=== PATIENT | male | born 1995 | race Caucasian/White ===

== ENCOUNTER 2016-10-13 19:52 | Emergency (ER) | payer OTHER ==
[2016-10-13 20:02] VITALS: BP 124/85; PULSE 76; TEMP 98.1; BMI 25.8
--- NOTE | 2016-10-13 20:36 | PDOC ---
History of Present Illness - General Chief Complaint: Pain Stated Complaint: ABDOMINAL PAIN Time Seen by Provider: 10/13/16 20:03 - History of Present Illness Initial Comments: 10/13/16 20:28 21 yo M with no significant pmh who presents with lower abdominal pain. Pt. reports worsening, intermittent, sharp diffuse lower abdominal pain beginning 2 days ago. Yesterday evening pain has increased to 8/10 severity. Also endorses watery stool yesterday morning , but denies blood in stool. States that Sunday he began to experience painful defecation and itching associated with BM. Complains of dysuria of 3 days duration and BL flank pain. Denies fevers/chills , N/V, hematochezia/melena, SOB, chest pain. Abdominal pain is aggravated with food, but no specific foods. Abdominal pain aggravated with standing for prolonged period, but improves with supine positioning. Pt. expressed being sexually active and concerned about the possibility of having an STI. States that he has 3 sexual partners and uses condoms regularly with the exception of a female sexual partner one month ago. Has both male and female sexual partners. Does not known STI status of partners. Denies genital discharge, itching, lesions, or burning. Past History - Past Medical History Allergies/Adverse Reactions: Allergies Allergy/AdvReac Type Severity Reaction Status Date / Time No Known Allergies Allergy Verified 10/13/16 19:57 Home Medications: Ambulatory Orders NK [No Known Home Medication] 09/01/15 Other medical history: Pt denies - Surgical History Abdominal Surgery: Yes (Hernia repair when infant) - Psycho/Social/Smoking Cessation Hx Suicidal Ideation: No Smoking History: Never smoked Information on smoking cessation initiated: No Hx Alcohol Use: No Drug/Substance Use Hx: No Substance Use Type: None Review of Systems - Review of Systems Comments:: 10/13/16 20:58 GENERAL/CONSTITUTIONAL: No fever or chills. No weakness. HEAD, EYES, EARS, NOSE AND THROAT: No change in vision. No ear pain or discharge. No sore throat. CARDIOVASCULAR: No chest pain or shortness of breath RESPIRATORY: No cough, wheezing, or hemoptysis. GASTROINTESTINAL: + Abdominal pain. No nausea, vomiting, diarrhea or constipation. GENITOURINARY:+ dysuria. No frequency, or change in urination. MUSCULOSKELETAL: No joint or muscle swelling or pain. No neck or back pain. SKIN: No rash NEUROLOGIC: No headache, vertigo, loss of consciousness, or change in strength/ sensation. ENDOCRINE: No increased thirst. No abnormal weight change HEMATOLOGIC/LYMPHATIC: No anemia, easy bleeding, or history of blood clots. ALLERGIC/IMMUNOLOGIC: No hives or skin allergy. *Physical Exam - Vital Signs Last Vital Signs Temp Pulse Resp BP Pulse Ox 98.1 F 76 18 124/85 98 10/13/16 19:58 10/13/16 19:58 10/13/16 19:58 10/13/16 19:58 10/13/16 19:58 - Physical Exam Comments: 10/13/16 20:59 GENERAL: Awake, alert, and fully oriented, in no acute distress HEAD: No signs of trauma, normocephalic, atraumatic EYES: PERRLA, EOMI, sclera anicteric, conjunctiva clear ENT: Auricles normal inspection, hearing grossly normal, nares patent, oropharynx clear without exudates. Moist mucosa NECK: Normal ROM, supple, no lymphadenopathy, JVD, or masses LUNGS: No distress, speaks full sentences, clear to auscultation bilaterally HEART: Regular rate and rhythm, normal S1 and S2, no murmurs, rubs or gallops, peripheral pulses normal and equal bilaterally. ABDOMEN: + Exquisite TTP in RLQ. Mild TTP in RUQ. + BL CVA tenderness. Soft, normoactive bowel sounds. No guarding, no rebound. No masses. Absent HSP. EXTREMITIES: Normal inspection, Normal range of motion, no edema. No clubbing or cyanosis. SKIN: Warm, Dry, normal turgor, no rashes or lesions noted. ED Treatment Course - LABORATORY CBC & Chemistry Diagram: 10/13/16 20:47 10/13/16 20:47 Medical Decision Making - Medical Decision Making 10/13/16 21:53 21 yo M with no significant pmh who presents with lower abdominal pain. Pt. reports worsening, intermittent, sharp diffuse lower abdominal pain beginning 2 days ago. Also endorses postprandial abdominal pain, and dysuria. with no other asx. symptoms. Physical exam reveals marked RLQ TTP , mild RUQ tenderness, and BL CVA tenderness. Pt. also expressed concern about potential STI given recent sexual activity with no barrier protection and multiple sexual partners of unknown STI status. He is currently asymptomatic, but requests further evaluation for STI. DDx: Appendicitis, Choliethiasis, Nephrolithiasis, Cystitis, Pyelenophritis, STI ED Course: CBC: Unremarkable CMP: Unremarkable Lipase: Unremarkable UA: Neg GC RPR HIV CT ABD/PELVIS: Fatty liver and diverticula present in colon. Absent signs of diverticulitis. *DC/Admit/Observation/Transfer Diagnosis at time of Disposition: Abdominal pain Qualifiers: Abdominal location: lower abdomen, unspecified Qualified Code(s): R10.30 - Lower abdominal pain, unspecified Diverticula of colon Qualifiers: Diverticulosis bleeding: diverticulosis without bleeding Qualified Code(s): K57.30 - Diverticulosis of large intestine without perforation or abscess without bleeding - Discharge Dispostion Admit: No - Referrals Referrals: Marysol Conley [Primary Care Provider] - - Patient Instructions Printed Discharge Instructions: Diverticular Disease (Alternative Therapy), Nonalcoholic Fatty Liver Disease Additional Instructions: Please return to ED if you experience worsening abdominal pain, fever/chills, nausea with vomiting, blood in stool or worsening of symptoms. Please decrease fat intake and increase fruits/vegetables in diet. Please follow up with primary care for dietary management and symptom control. Print Language: GAMBIAN - Attestations Physician Attestion: 10/14/16 00:19 I, Dr. Babar Bowles, attest that this document has been prepared under my direction and personally reviewed by me in its entirety. I further attest, that it accurately reflects all work, treatment, procedures and medical decision -making performed by me.
[2016-10-13 21:01] LABS: BASOPHIL 0.7 % (0-2.0); EOSINOPHIL 1.1 % (0-4.5); MCH 28.5 pg (25.7-33.7); MCHC 33.9 g/dl (32.0-35.9); MEAN PLT VOLUME 9.8 fl (7.5-11.1); NEUTROPHILS 56.8 % (42.8-82.8); PLATELET COUNT 201 K/MM3 (134-434); RDW 13.5 % (11.9-15.9); WHITE BLOOD COUNT 9.1 K/mm3 (4.0-10.0)
[2016-10-13 21:07] LABS: URINE APPEARANCE CLEAR; URINE BILIRUBIN NEGATIVE (NEGATIVE); URINE BLOOD NEGATIVE (NEGATIVE); URINE COLOR LTYELLOW; URINE GLUCOSE (UA) NEGATIVE (NEGATIVE); URINE KETONE NEGATIVE (NEGATIVE); URINE LEUK ESTERASE NEGATIVE (NEGATIVE); URINE NITRITE NEGATIVE (NEGATIVE); URINE PROTEIN NEGATIVE (NEGATIVE); URINE UROBILINOGEN NEGATIVE mg/dL (0.2-1.0)
[2016-10-13 21:27] LABS: ALBUMIN 4.3 g/dl (3.4-5.0); ANION GAP 8 (8-16); BILIRUBIN,TOTAL 0.4 mg/dL (0.2-1.0); CALCIUM 9.4 mg/dL (8.5-10.1); CO2 26 mmol/L (21-32); CREATININE 0.8 mg/dL (0.7-1.3); GLUCOSE,RANDOM 86 mg/dL (74-106); SGOT/AST 44 U/L (15-37); SGPT/ALT 112 U/L (12-78); TOT PROT 7.9 g/dl (6.4-8.2)
[2016-10-13 21:28] LABS: ALK PHOS 99 U/L (45-117)
[2016-10-13 22:17] LABS: HIV 1 & 2 AB NEGATIVE; HIV 1 AGp24 NEGATIVE
--- NOTE | 2016-10-14 00:14 | PDOC ---
Attending Attestation - Resident Resident Name: Babar Bowles - HPI HPI: 10/14/16 05:03 Pt comes with generalized abd pain and request for STD test. - Physicial Exam PE: 10/14/16 05:03 agree with resident exam - Medical Decision Making 10/14/16 05:03 CT abd pelvis is normal; STD test pending Labs normal UA normal Pt is stable for discahrge Abd pain NOS
== END 2016-10-14 00:40 | disposition home or self-care (01) ==
LOC: JER 19:52
DX: K57.30 Diverticulosis of large intestine without perforation or abscess without bleeding (principal); R10.30 Lower abdominal pain, unspecified
CPT/HCPCS: 36415; 74177-TC; 80053; 81003; 83690; 85025; 86593; 87389; 87491; 87591; 99282-25

== ENCOUNTER 2017-03-24 15:15 | Emergency (ER) | payer OTHER ==
[2017-03-24 15:44] VITALS: BMI 25.8
[2017-03-24] MEDS ORDERED: SODIUM CHLORIDE 1,000 ML IV STA (17:24)
[2017-03-24] MEDS ORDERED: ACETAMINOPHEN 1000 MG/100 ML VIAL (NON FORMULARY) IVPB ONE (17:24)
--- NOTE | 2017-03-24 17:41 | PDOC ---
History of Present Illness - General History Source: Patient Exam Limitations: No Limitations - History of Present Illness Initial Comments: 03/24/17 17:43 The patient is a 21 year old male, with a significant past medical history of diverticulosis, who presents to the emergency department with 3 days of abdominal pain with genital itching and redness. He reports the abdominal pain as sharp localized to his bilateral lower quadrants which started as 8/10, however, is now 5/10 in severity. He states he is sexually active with multiple partners. He denies a past history of STI. Secondarily he reports an intermittent, sharp, left sided chest pain which started at the same time as his abdominal pain and genital complaints, however, states that this morning he noticed the pain radiated to his left arm. He denies shortness of breath, headache and dizziness. He denies fever, chills, nausea, vomit, diarrhea and constipation. He denies dysuria, frequency, urgency and hematuria. Allergies: NKDA <Lori Ryan - Last Filed: 03/24/17 17:43> - General History Source: Patient Exam Limitations: No Limitations <Dandy Price - Last Filed: 03/29/17 21:37> - General Chief Complaint: Pain Stated Complaint: ABDOMINAL PAIN Time Seen by Provider: 03/24/17 16:42 Past History <Lori Ryan - Last Filed: 03/24/17 17:43> - Past Medical History CVA: No COPD: No - Surgical History Abdominal Surgery: Yes (Hernia repair when ) - Suicide/Smoking/Psychosocial Hx Smoking History: Never smoked Hx Alcohol Use: Yes (SOCIAL) Drug/Substance Use Hx: No Substance Use Type: None <Dandy Price - Last Filed: 03/29/17 21:37> - Past Medical History Allergies/Adverse Reactions: Allergies Allergy/AdvReac Type Severity Reaction Status Date / Time No Known Allergies Allergy Verified 03/24/17 15:44 Home Medications: Ambulatory Orders NK [No Known Home Medication] 09/01/15 Review of Systems - Review of Systems Able to Perform ROS?: Yes Comments:: 03/24/17 17:44 GENERAL/CONSTITUTIONAL: No fever or chills. No weakness. HEAD, EYES, EARS, NOSE AND THROAT: No change in vision. No ear pain or discharge. No sore throat. CARDIOVASCULAR: (+) chest pain, No shortness of breath. RESPIRATORY: No cough, wheezing, or hemoptysis. GASTROINTESTINAL: (+) lower abdominal pain. No nausea, vomiting, diarrhea or constipation. GENITOURINARY: (+) genital itching and redness. No dysuria, frequency, or change in urination. MUSCULOSKELETAL: No joint or muscle swelling or pain. No neck or back pain. SKIN: No rash NEUROLOGIC: No headache, vertigo, loss of consciousness, or change in strength/ sensation. ENDOCRINE: No increased thirst. No abnormal weight change. HEMATOLOGIC/LYMPHATIC: No anemia, easy bleeding, or history of blood clots. ALLERGIC/IMMUNOLOGIC: No hives or skin allergy. <Lori Ryan - Last Filed: 03/24/17 17:43> *Physical Exam - Vital Signs Last Vital Signs Temp Pulse Resp BP Pulse Ox 99.0 F 73 20 131/71 99 03/24/17 15:41 03/24/17 15:41 03/24/17 15:41 03/24/17 15:41 03/24/17 15:41 - Physical Exam Comments: 03/24/17 17:45 GENERAL: Awake, alert, and fully oriented, in no acute distress HEAD: No signs of trauma EYES: PERRLA, EOMI, sclera anicteric, conjunctiva clear ENT: Auricles normal inspection, hearing grossly normal, nares patent, oropharynx clear without exudates. Moist mucosa NECK: Normal ROM, supple, no lymphadenopathy, JVD, or masses LUNGS: Breath sounds equal, clear to auscultation bilaterally. No wheezes, and no crackles HEART: Regular rate and rhythm, normal S1 and S2, no murmurs, rubs or gallops ABDOMEN: (+) left lower quadrant and suprapubic tenderness. Soft, normoactive bowel sounds. No guarding, no rebound. No masses EXTREMITIES: Normal range of motion, no edema. No clubbing or cyanosis. No cords, erythema, or tenderness NEUROLOGICAL: Cranial nerves II-XII intact. Normal speech, normal gait. Sensation intact in upper and lower extremities. 5/5 motor strength in upper and lower extremities. No pronator drift. Finger to nose intact. Rapid alternations intact. SKIN: Warm, Dry, normal turgor, no rashes or lesions noted. <Lori Ryan - Last Filed: 03/24/17 17:43> - Vital Signs Last Vital Signs Temp Pulse Resp BP Pulse Ox 99.0 F 73 20 131/71 99 03/24/17 15:41 03/24/17 15:41 03/24/17 15:41 03/24/17 15:41 03/24/17 15:41 <Dandy Price - Last Filed: 03/29/17 21:37> ED Treatment Course - LABORATORY CBC & Chemistry Diagram: 03/24/17 19:00 03/24/17 19:00 - RADIOLOGY Radiology Studies Ordered: Category Date Time Status ABDOMEN & PELVIS CT WITH CONTR [CT] Stat CT Scan 03/24/17 17:24 Ordered <Dandy Price - Last Filed: 03/29/17 21:37> Medical Decision Making - Medical Decision Making 03/24/17 17:34 A portion of this note was documented by scribe services under my direction. I have reviewed the details of the note, within reason, and agree with the documentation with the following case summary and management plan written by me. Patient treated in the ED. Nursing notes are reviewed and incorporated into the medical decision-making. Vital signs reviewed. Peripheral IV access obtained by the nurse, laboratory studies are drawn and sent, reviewed and interpreted by myself. Vital Signs Temp Pulse Resp BP Pulse Ox 99.0 F 73 20 131/71 99 03/24/17 15:41 03/24/17 15:41 03/24/17 15:41 03/24/17 15:41 03/24/17 15:41 21-year-old male with past medical history diverticulosis presents with 3 days of lower abdominal pain. The patient has reported a sharp initially intermittent lower abdominal pain that has progressively worsened and constant. Patient denies any rectal bleeding or diarrhea. No fevers, nausea, vomiting. First-time episode. Patient did also Complain about an itchy-like feeling in the general region but denies any purulent discharge, dysuria, urinary frequency or rash. Patient is sexually active with multiple partners including men and moment. Denies prior history of STDs. He is requesting essentially treatment disease check. Signout, patient reports intermittent left-sided chest pain that is nonexertional that raise the left arm. Denies smoking history or polysubstance use history. Denies family history. States has been bothering him in one to get checked out. The patient did not want me to perform the physical exam as he reported feeling more comfortable with this moment. Physical exam was performed by my physician him assistant Elizabeth June who reports to me that the patient is uncircumcised with no rash or lesions, nontender testicles, and no drainage. This may potentially be effort colitis, appendicitis, cystitis. We'll send the STD workup. We'll also obtain a CAT scan of the abdomen pelvis. We'll obtain EKG , chest x-ray troponin though I have very low suspicion for acute coronary syndrome. 03/24/17 19:02 Case signed out to [facility] ED attending DR. Hoyt for further management and disposition. <Dandy Price - Last Filed: 03/29/17 21:37> *DC/Admit/Observation/Transfer - Attestations Scribe Attestion: 03/24/17 17:45 Documentation prepared by Lori Ryan, acting as center medical and lab director for Dandy Price MD, <Lori Ryan - Last Filed: 03/24/17 17:43> <Dandy Price - Last Filed: 03/29/17 21:37> Diagnosis at time of Disposition: Gas pain, Constipation, Fatty liver - Discharge Dispostion Disposition: HOME Condition at time of disposition: Stable - Patient Instructions Printed Discharge Instructions: Constipation
[2017-03-24] MEDS ORDERED: ACETAMINOPHEN INJECTION 100 ML IVPB ONE (18:52)
[2017-03-24 19:10] LABS: BASO % 0.7 % (0-2.0); EOS % 1.8 % (0-4.5); HEMATOCRIT 44.5 % (35.4-49); HEMOGLOBIN 15.5 GM/dL (11.7-16.9); LYMPH % 31.2 % (8-40); MCH 28.6 pg (25.7-33.7); MCHC 34.8 g/dl (32.0-35.9); MEAN CELL VOLUME 82.2 fl (80-96); MEAN PLT VOLUME 9.6 fl (7.5-11.1); MONO % 8.3 % (3.8-10.2); PLATELET COUNT 202 K/MM3 (134-434); RBC 5.42 M/mm3 (4.00-5.60); RDW 13.3 % (11.9-15.9)
[2017-03-24 19:19] LABS: URINE APPEARANCE CLEAR; URINE BILIRUBIN NEGATIVE (NEGATIVE); URINE BLOOD NEGATIVE (NEGATIVE); URINE COLOR YELLOW; URINE GLUCOSE (UA) NEGATIVE (NEGATIVE); URINE KETONE NEGATIVE (NEGATIVE); URINE LEUK ESTERASE NEGATIVE (NEGATIVE); URINE NITRITE NEGATIVE (NEGATIVE); URINE PROTEIN NEGATIVE (NEGATIVE)
[2017-03-24 19:48] LABS: ALBUMIN 4.2 g/dl (3.4-5.0); ALK PHOS 93 U/L (45-117); ANION GAP 5 (8-16); BILIRUBIN,TOTAL 0.5 mg/dL (0.2-1.0); BLOOD UREA NITROGEN 14 mg/dL (7-18); CALCIUM 8.6 mg/dL (8.5-10.1); CHLORIDE 105 mmol/L (98-107); CO2 29 mmol/L (21-32); CREATININE 0.8 mg/dL (0.7-1.3); GLUCOSE,RANDOM 84 mg/dL (74-106); LIPASE 90 U/L (73-393); POTASSIUM 3.9 mmol/L (3.5-5.1); SGOT/AST 25 U/L (15-37); SGPT/ALT 65 U/L (12-78); SODIUM 139 mmol/L (136-145); TOT PROT 7.6 g/dl (6.4-8.2)
--- NOTE | 2017-03-24 20:04 | PDOC ---
*Physical Exam - Vital Signs Last Vital Signs Temp Pulse Resp BP Pulse Ox 99.0 F 73 20 131/71 99 03/24/17 15:41 03/24/17 15:41 03/24/17 15:41 03/24/17 15:41 03/24/17 15:41 ED Treatment Course - LABORATORY CBC & Chemistry Diagram: 03/24/17 19:00 03/24/17 19:00 - ADDITIONAL ORDERS Additional order review: Laboratory Results 03/24/17 03/24/17 19:12 19:00 Sodium 139 Potassium 3.9 Chloride 105 Carbon Dioxide 29 Anion Gap 5 L BUN 14 Creatinine 0.8 Creat Clearance w eGFR > 60 Random Glucose 84 Calcium 8.6 Total Bilirubin 0.5 D AST 25 D ALT 65 D Alkaline Phosphatase 93 Total Protein 7.6 Albumin 4.2 Lipase 90 Urine Color Yellow Urine Appearance Clear Urine pH 6.0 Ur Specific [place] 1.024 Urine Protein Negative Urine Glucose (UA) Negative Urine Ketones Negative Urine Blood Negative Urine Nitrite Negative Urine Bilirubin Negative Urine Urobilinogen 2.0 Ur Leukocyte Esterase Negative 03/24/17 19:00 RBC 5.42 MCV 82.2 MCHC 34.8 RDW 13.3 MPV 9.6 Neutrophils % 58.0 Lymphocytes % 31.2 Monocytes % 8.3 Eosinophils % 1.8 Basophils % 0.7 - Medications Given in the ED: ED Medications Discontinued Medications Generic Name Dose Route Start Last Admin Trade Name Miller PRN Reason Stop Dose Admin Acetaminophen 1,000 mg 03/24/17 17:24 03/24/17 19:06 Ofirmev Injection - IVPB 03/24/17 17:25 Not Given ONCE ONE Sodium Chloride 1,000 mls @ 1,000 mls/hr 03/24/17 17:24 03/24/17 19:05 Normal Saline - IV 03/24/17 18:23 1,000 mls/hr ASDIR STA Administration Medical Decision Making - Medical Decision Making 03/24/17 20:01 Received pt on signout. EKG s NSR Labs and UA all normal CT pending 03/24/17 20:04 03/24/17 20:07 CXR appears normal 03/24/17 22:27 Patient Name: ELI JONES THIS IS A PRELIMINARY REPORT FROM [facility] EXAM: CT ABDOMEN AND PELVIS WITH IV CONTRAST DATE OF SERVICE: 2017-03-24 20:56:41 IMAGES: 371 TECHNIQUE: axial images from the lung bases to the iliac crest utilizing spiral imaging technique with multiplanar reconstructions from the axial data set. Oral contrast: Yes. 95 mL Omnipaque 350 IV contrast without noted complication INDICATION: Clinical concern for diverticulitis COMPARISON: None. FINDINGS: The lung bases are: Unremarkable ABDOMEN: LIVER, SPLEEN, PANCREAS AND ADRENAL GLANDS:Hepatic steatosis. The spleen, pancreas and adrenal glands are unremarkable. GALLBLADDER AND BILIARY SYSTEM: The gallbladder appears normal. There are no calcified gallstones. There is no biliary tract dilatation. KIDNEYS: The bilateral kidneys are normal in size. abnormal renal enhancement/ solid mass: No .There is no hydronephrosis or perinephric inflammation. STOMACH AND BOWEL: The stomach and small bowel appear unremarkable. There may be a few scattered colonic diverticula distal descending and sigmoid colon. Moderate volume of fecal material in the sigmoid colon and rectum with distention of the rectum. There is no other bowel dilatation, or evidence of obstruction. The appendix is visualized and appears normal. PERITONEUM/RETROPERITONEUM: There is no free intraperitoneal air or fluid. There is no bulky lymphadenopathy within the abdomen or pelvis. VESSELS: The abdominal aorta and its major branching vessels are unremarkable BONES: The imaged osseous structures are unremarkable VENTRAL ABDOMINAL WALL: unremarkable PELVIS: No acute finding. IMPRESSION: Suspect constipation, there may be rectal fecal impaction, advise clinical correlation. Few colonic diverticula, no CT findings to suggest diverticulitis. Hepatic steatosis. THIS DOCUMENT HAS BEEN ELECTRONICALLY SIGNED *DC/Admit/Observation/Transfer Diagnosis at time of Disposition: Gas pain, Constipation, Fatty liver - Discharge Dispostion Disposition: HOME Condition at time of disposition: Stable Admit: No - Referrals - Patient Instructions Printed Discharge Instructions: Constipation - Post Discharge Activity
[2017-03-24] MEDS ORDERED: LACTULOSE 20 GM/30 ML UDC (FOR ORAL USE ONLY) PO ONE (21:46)
[2017-03-24] MEDS ORDERED: LACTULOSE 20 GM/30 ML UDC (FOR ORAL USE ONLY) ONE (21:48)
[2017-03-24 22:00] VITALS: BP 128/68; PULSE 68; TEMP 98.1
--- NOTE | 2017-03-26 11:41 | EKG ---
Test Reason : Blood Pressure : / mmHG Vent. Rate : 059 BPM Atrial Rate : 059 BPM P-R Int : 150 ms QRS Dur : 082 ms QT Int : 408 ms P-R-T Axes : 049 020 018 degrees QTc Int : 403 ms SINUS BRADYCARDIA OTHERWISE NORMAL ECG NO PREVIOUS ECGS AVAILABLE Confirmed by LARA JEREZ MD ([id number]) on 03/26/2017 11:41:24 AM Referred By: Confirmed By:LARA JEREZ MD
== END 2017-03-24 21:59 | disposition home or self-care (01) ==
LOC: JER 15:15
PROC: 3E0337Z Introduction of Electrolytic and Water Balance Substance into Peripheral Vein, Percutaneous Approach (ICD-10-PCS; principal; 2017-03-24)
DX: K59.00 Constipation, unspecified (principal); R14.1 Gas pain; K76.0 Fatty (change of) liver, not elsewhere classified
CPT/HCPCS: 36415; 71046-TC; 74177-TC; 80053; 81003; 82550; 82553; 83690; 84484; 85025; 86593; 87077; 87086; 87186; 87389; 93005; 93010; 96360; 99283-25

== ENCOUNTER 2017-07-14 16:37 | Emergency (ER) | payer OTHER ==
[2017-07-14 16:57] VITALS: BP 130/72; PULSE 80; TEMP 98; BMI 25.8
--- NOTE | 2017-07-14 17:46 | PDOC ---
History of Present Illness - General History Source: Patient Exam Limitations: No Limitations - History of Present Illness Initial Comments: 07/14/17 18:06 The patient is a 22 year old male with a significant PMH of seasonal allergies and diverticulosis who presents to the emergency department with 1 week of intermittent abdominal discomfort and 1 day of seasonal allergy symptoms. The patient describes his abdominal pain as an intermittent discomfort localized in the upper and epigastric regions with associated decreased appetite and intermittent burning sensation, which he states feels like he has to use the bathroom. The patient also notes 1 episode of diarrhea yesterday. He reports not eating today. The patient also states he has had continuous sneezing, watery and itchy eyes, and decreased sleep today. The patient notes he was diagnosed with diverticulosis here in the ED in the past, but states these symptoms feel different from then. The patient denies chest pain, shortness of breath, headache and dizziness. Denies fever, chills, nausea, vomit, and constipation. Denies dysuria, frequency, urgency and hematuria. Allergies: Seasonal allergies. Past surgical history: Hernia repair (in infancy). Social history: No reported cigarette, alcohol, or drug use. PCP: Not on Staff. <Dandy Moreira - Last Filed: 07/14/17 18:06> - General History Source: Patient Exam Limitations: No Limitations <Elvira Falcon - Last Filed: 07/14/17 20:14> - General Chief Complaint: Allergic Reaction Stated Complaint: ALLERGIES/ABDOMINAL PAIN Time Seen by Provider: 07/14/17 17:17 Past History <Dandy Moreira - Last Filed: 07/14/17 18:06> - Past Medical History CVA: No COPD: No - Surgical History Abdominal Surgery: Yes (Hernia repair when infant) - Suicide/Smoking/Psychosocial Hx Smoking History: Never smoked Hx Alcohol Use: Yes (SOCIAL) Drug/Substance Use Hx: No Substance Use Type: None <Elvira Falcon - Last Filed: 07/14/17 20:14> - Past Medical History Allergies/Adverse Reactions: Allergies Allergy/AdvReac Type Severity Reaction Status Date / Time No Known Allergies Allergy Verified 07/14/17 16:56 Home Medications: Ambulatory Orders Fluticasone Prop 0.05% Nasal [Flonase -] 1 - 2 spray NS BID #1 spray.pump Levocetirizine Dihydrochloride [Xyzal] 5 mg PO DAILY #30 tablet 07/14/17 Ranitidine HCl [Zantac] 150 mg PO DAILY #30 tablet 07/14/17 Review of Systems - Review of Systems Able to Perform ROS?: Yes Comments:: 07/14/17 18:06 GENERAL/CONSTITUTIONAL: (+) Loss of appetite. (+) Decreased sleep. No fever or chills. No weakness. HEAD, EYES, EARS, NOSE AND THROAT: (+) Watery and itchy eyes. (+) Sneezing. No change in vision. No ear pain or discharge. No sore throat. CARDIOVASCULAR: No chest pain or shortness of breath. RESPIRATORY: No cough, wheezing, or hemoptysis. GASTROINTESTINAL: (+) Upper and epigastric abdominal discomfort. (+) 1 episode of diarrhea. No nausea, vomiting, constipation. GENITOURINARY: No dysuria, frequency, or change in urination. MUSCULOSKELETAL: No joint or muscle swelling or pain. No neck or back pain. SKIN: No rash NEUROLOGIC: No headache, vertigo, loss of consciousness, or change in strength/ sensation. ENDOCRINE: No increased thirst. No abnormal weight change. HEMATOLOGIC/LYMPHATIC: No anemia, easy bleeding, or history of blood clots. ALLERGIC/IMMUNOLOGIC: No hives or skin allergy. <Dandy Moreira - Last Filed: 07/14/17 18:06> *Physical Exam - Vital Signs Last Vital Signs Temp Pulse Resp BP Pulse Ox 98 F 80 18 130/72 100 07/14/17 16:54 07/14/17 16:54 07/14/17 16:54 07/14/17 16:54 07/14/17 16:54 - Physical Exam Comments: 07/14/17 18:06 GENERAL: Awake, alert, and fully oriented, in no acute distress HEAD: No signs of trauma EYES: PERRLA, EOMI, sclera anicteric, conjunctiva clear ENT: Auricles normal inspection, hearing grossly normal, nares patent, oropharynx clear without exudates. Moist mucosa NECK: Normal ROM, supple, no lymphadenopathy, JVD, or masses LUNGS: Breath sounds equal, clear to auscultation bilaterally. No wheezes, and no crackles HEART: Regular rate and rhythm, normal S1 and S2, no murmurs, rubs or gallops ABDOMEN: (+) Upper and epigastric tenderness. Soft. Hypoactive bowel sounds. No guarding, no rebound. No masses. EXTREMITIES: Normal range of motion, no edema. No clubbing or cyanosis. No cords, erythema, or tenderness NEUROLOGICAL: Cranial nerves II through XII grossly intact. Normal speech, normal gait SKIN: Warm, Dry, normal turgor, no rashes or lesions noted. <Dandy Moreira - Last Filed: 07/14/17 18:06> - Vital Signs Last Vital Signs Temp Pulse Resp BP Pulse Ox 98 F 80 18 130/72 100 07/14/17 16:54 07/14/17 16:54 07/14/17 16:54 07/14/17 16:54 07/14/17 16:54 <Elvira Falcon - Last Filed: 07/14/17 20:14> ED Treatment Course - LABORATORY CBC & Chemistry Diagram: 07/14/17 17:50 07/14/17 17:50 <Elvira Falcon - Last Filed: 07/14/17 20:14> Medical Decision Making - Medical Decision Making 07/14/17 17:49 Mr Jose is a 22 yo M with a history of diverticulosis who presents to the ER with 2 complaints 1) Severe seasonal allergies - increasing severity over the past day, has not tried anything because all of the otc medications have not helped, (+) rhinorhea , (+)itchy eyes, no fevers or chills, no headache, no neck pain, no productive cough 2) Abdominal pain - located in the epigastrium, pt states mostly he has an "upset stomach", pain is not severe, does not radiate to the back, (+) nausea, no vomiting, decreased appetite, one episode of diarrhea, no lower abdominal tenderness On examination: Epigastric tenderness and ruq tenderness No guarding or rebound NO lower abdominal tenderness RRR CTA bilaterally DD: Seasonal allergies Gastritis vs. pancreatitis vs. biliary colic Will do: Labs consider RUQ US Pepcid IV Re assess 07/14/17 19:52 Laboratory Tests 07/14/17 07/14/17 17:50 17:50 WBC 9.3 Hgb 15.8 Hct 45.5 Plt Count 206 Sodium 140 Potassium 3.6 Chloride 105 Carbon Dioxide 30 BUN 12 Creatinine 0.7 Random Glucose 76 Total Amylase 34 Lipase 111 07/14/17 20:03 Upon re evaluation, pt symptoms have improved Will discharge to home Follow up with GI Follow up with ENT Will start Hanane Nixon Xyzal Clinical impression: Gastritis, initial presentation Seasonal Allergies, initial presentation <Elvira Falcon - Last Filed: 07/14/17 20:14> *DC/Admit/Observation/Transfer - Attestations Scribe Attestion: 07/14/17 18:06 Documentation prepared by Dandy Moreira, acting as chief medical physicist for Elvira Falcon MD. <Dandy Moreira - Last Filed: 07/14/17 18:06> - Discharge Dispostion Admit: No <Elvira Falcon - Last Filed: 07/14/17 20:14> Diagnosis at time of Disposition: Gastritis Qualifiers: Gastritis type: unspecified gastritis Chronicity: acute Gastritis bleeding: without bleeding Qualified Code(s): K29.00 - Acute gastritis without bleeding Seasonal allergies Qualifiers: Allergic rhinitis trigger: other Qualified Code(s): J30.89 - Other allergic rhinitis - Discharge Dispostion Disposition: HOME Condition at time of disposition: Stable - Referrals Referrals: ON STAFF,NOT [Primary Care Provider] - Juan José Workman MD [Staff Physician] - Roshan Santos MD [Staff Physician] - Trey Porras MD [Staff Physician] - Edilson Howell MD [Staff Physician] - - Patient Instructions Printed Discharge Instructions: DI for Gastritis, Gastritis (Alternative Therapy), DI for Allergic Rhinitis Additional Instructions: Thank you for coming in to the ER Please take medications as prescribed If you do not improve, please return to the ER for any other concerns or complaints - Post Discharge Activity Forms/Work/School Notes: Back to Work
[2017-07-14] MEDS ORDERED: FAMOTIDINE 20 MG/50 ML IVPB 20 MG/50 ML MG IVPB ONE ×2 (18:00→18:32)
[2017-07-14] MEDS ORDERED: diphenhydrAMINE HCL 25 MG CAPSULE (FP) PO ONE ×2 (18:28→18:32)
[2017-07-14 18:56] LABS: BASO % 0.7 % (0-2.0); HEMATOCRIT 45.5 % (35.4-49); HEMOGLOBIN 15.8 GM/dL (11.7-16.9); LYMPH % 20.3 % (8-40); MCHC 34.7 g/dl (32.0-35.9); MEAN CELL VOLUME 83.7 fl (80-96); MEAN PLT VOLUME 9.7 fl (7.5-11.1); MONO % 10.1 % (3.8-10.2); NEUT % 65.9 % (42.8-82.8); PLATELET COUNT 206 K/MM3 (134-434); RBC 5.44 M/mm3 (4.00-5.60); WHITE BLOOD COUNT 9.3 K/mm3 (4.0-10.0)
[2017-07-14 19:21] LABS: ALBUMIN 4.4 g/dl (3.4-5.0); ALK PHOS 93 U/L (45-117); AMYLASE 34 U/L (25-115); ANION GAP 5 (8-16); BILIRUBIN,TOTAL 0.6 mg/dL (0.2-1.0); BLOOD UREA NITROGEN 12 mg/dL (7-18); CHLORIDE 105 mmol/L (98-107); CO2 30 mmol/L (21-32); CREATININE 0.7 mg/dL (0.7-1.3); GLUCOSE,RANDOM 76 mg/dL (74-106); LIPASE 111 U/L (73-393); POTASSIUM 3.6 mmol/L (3.5-5.1); SGOT/AST 37 U/L (15-37); SGPT/ALT 92 U/L (12-78); SODIUM 140 mmol/L (136-145); TOT PROT 8.1 g/dl (6.4-8.2)
== END 2017-07-14 20:32 | disposition home or self-care (01) ==
LOC: JER 16:37
PROC: 3E033GC Introduction of Other Therapeutic Substance into Peripheral Vein, Percutaneous Approach (ICD-10-PCS; principal; 2017-07-14)
DX: K29.00 Acute gastritis without bleeding (principal); J30.2 Other seasonal allergic rhinitis
CPT/HCPCS: 36415; 80053; 82150; 83690; 85025; 96365; 99283-25

== ENCOUNTER 2017-08-06 20:22 | Emergency (ER) | payer OTHER ==
[2017-08-06 20:31] VITALS: BP 117/61; PULSE 89; TEMP 98.2; BMI 27.1
[2017-08-06] MEDS ORDERED: ONDANSETRON 4 MG/2 ML VIAL IVPUSH ONE (22:15)
[2017-08-06] MEDS ORDERED: SODIUM CHLORIDE 1,000 ML IV STA (22:15)
--- NOTE | 2017-08-06 22:18 | PDOC ---
History of Present Illness - General Chief Complaint: Pain Stated Complaint: ABD PAIN Time Seen by Provider: 08/06/17 22:00 - History of Present Illness Initial Comments: 08/06/17 22:37 The patient is a 22 year old female with a reported history of diverticulosis who presents for evaluation of lower abdominal pain. The patient reports a 2 day history of intermittent worsening lower abdominal pain with associated diarrhea, nausea, and worsening "acid reflux" prompting his presentation to the ED for further evaluation. He has had several presentations in the past for similar symptoms with negative CT scanning. He otherwise denies fevers, chills , SOB, chest pain, vomiting, or changes with urination. Past History - Past Medical History Allergies/Adverse Reactions: Allergies Allergy/AdvReac Type Severity Reaction Status Date / Time No Known Allergies Allergy Verified 08/06/17 20:31 Home Medications: Ambulatory Orders Fluticasone Prop 0.05% Nasal [Flonase -] 1 - 2 spray NS BID #1 spray.pump Levocetirizine Dihydrochloride [Xyzal] 5 mg PO DAILY #30 tablet 07/14/17 Ranitidine HCl [Zantac] 150 mg PO DAILY #30 tablet 07/14/17 CVA: No COPD: No - Surgical History Abdominal Surgery: Yes (Hernia repair when infant) - Suicide/Smoking/Psychosocial Hx Smoking History: Unknown if ever smoked Have you smoked in the past 12 months: No Information on smoking cessation initiated: No Hx Alcohol Use: No Drug/Substance Use Hx: No Substance Use Type: None Review of Systems - Review of Systems Comments:: 08/06/17 22:39 Constitutional: No fevers, chills, fatigue, malaise HEENT: No Rhinorrhea, nasal congestion, visual changes Cardiovascular: No chest pain, syncope, palpitations, lightheadedness Respiratory: No Cough, SOB, Hemoptysis, Gastrointestinal: Abdominal pain, Nausea, Diarrhea. No Vomiting, Constipation, Melena Genitourinary: No Dysuria, Frequency, Urgency, Hesitancy, Hematuria, Flank pain Musculoskeletal: No Myalgia, arthralgia Skin: No rashes, itching, bruising, pallor Neurologic: No Headache, Dizziness, Numbness, Weakness, or Tingling Psychiatric: No Hallucinations. No SI or HI *Physical Exam - Vital Signs Last Vital Signs Temp Pulse Resp BP Pulse Ox 98.2 F 89 16 117/61 100 08/06/17 20:29 08/06/17 20:29 08/06/17 20:29 08/06/17 20:29 08/06/17 20:29 - Physical Exam Comments: 08/06/17 22:41 General Appearance: Nourished. No Apparent Distress HEENT: EOMI, KRISTIE. No Pharyngeal Erythema, Tonsillar Exudate, Tonsillar Erythema Neck: No Cervical Lymphadenopathy Respiratory/Chest: Lungs Clear, Normal Breath Sounds. No Crackles, Rales, Rhonchi, Wheezing Cardiovascular: Regular Rhythm, Regular Rate. No Murmur, Gallops, Rubs Gastrointestinal/Abdominal: Normal Bowel Sounds, Soft. Mild Lower abdominal tenderness to palpation worse in the LLQ. No Guarding, Rebound, Musculoskeletal: No CVA Tenderness Extremity: Normal Capillary Refill Integumentary: Normal Color, Dry, Warm Neurologic: Fully Oriented, Alert, Normal Mood/Affect, Normal Response, ED Treatment Course - LABORATORY CBC & Chemistry Diagram: 08/06/17 22:27 08/06/17 22:27 - RADIOLOGY Radiology Studies Ordered: Category Date Time Status ABDOMEN & PELVIS CT WITH CONTR [CT] Stat CT Scan 08/06/17 22:15 Ordered Medical Decision Making - Medical Decision Making 08/06/17 22:53 The patient is a 22 year old female with a reported history of diverticuliosis who presents for evaluation of lower abdominal pain. Differential includes but is not limited to: Appendicitis, Diverticulitis, Colitis, Infectious, Metabolic derangement. Given the patient's history and physical exam, we will obtain a cbc, cmp, lipase an Abdomen Pelvis CT to evaluate further for possible etiologies. We will treat in the meantime with iv fluids, zofran, and pepcid and continue to monitor and reassess. 08/07/17 02:05 CBC, cmp, lipase are unremarkable. CT abdomen/pelvis is unremarkable as preliminarily read by our industrial economics teacher radiologist The patient reports improvement in his symptoms. We are comfortable discharging the patient home with GI follow up and discussed the importance of following up with a GI specialist. We discussed the results, plan and return precautions with the patient who voiced understanding and is agreeable with the plan. *DC/Admit/Observation/Transfer Diagnosis at time of Disposition: Abdominal pain Qualifiers: Abdominal location: unspecified location Qualified Code(s): R10.9 - Unspecified abdominal pain - Discharge Dispostion Disposition: HOME Condition at time of disposition: Stable Decision to Admit order: No - Referrals Referrals: Marysol Conley [Primary Care Provider] - Roshan Santos MD [Staff Physician] - - Patient Instructions Printed Discharge Instructions: DI for Abdominal Pain-Adult Additional Instructions: Please return to the ER if you experience concerning or worsening symptoms including worsening abdominal pain, fevers, or vomiting. Your lab results and CT scan were normal here in the ER. It is extremely important that you call to schedule a follow up appointment with our GI specialist Dr. Santos within 2-3 days to discuss your ER visit and further management of your symptoms. - Post Discharge Activity
[2017-08-06] MEDS ORDERED: FAMOTIDINE 20 MG/50 ML IVPB 20 MG/50 ML MG IVPB ONE ×2 (22:30→22:33)
[2017-08-06] MEDS ORDERED: ONDANSETRON 4 MG/2 ML VIAL ONE (22:33)
--- NOTE | 2017-08-06 22:36 | PDOC ---
Attending Attestation - Resident Resident Name: EricaDiego - ED Attending Attestation I have performed the following: I have examined & evaluated the patient, The case was reviewed & discussed with the resident, I agree w/resident's findings & plan, Exceptions are as noted - HPI HPI: 08/06/17 22:19 22 yo M presenting to the ER with a complaint of intermittent lower abdominal pain No fevers or chills Pt reports intermittent diarrhea No nausea or vomiting No recent travel No undercooked or uncooked meat No ill contacts Of note, pt has had multiple visits to the ER due to abdominal pain - Physicial Exam PE: 08/06/17 22:20 GENERAL: The patient is in no acute distress. LUNGS: Breath sounds equal, clear to auscultation bilaterally. No wheezes, and no crackles. HEART:Regular rate and rhythm, normal S1 and S2 without murmur, rub or gallop. ABDOMEN: Soft, mildly tender to lower abdominal palpation, no involuntary guarding or rebound EXTREMITIES: Normal range of motion, no edema. NEUROLOGICAL: Cranial nerves II through XII grossly intact. Normal speech. No focal neurological deficits. SKIN: Warm, Dry, normal turgor, no rashes or lesions noted. 08/06/17 23:25 - Medical Decision Making 08/06/17 22:21 22 yo presenting to the ER with a complaint of abdominal pain Has had diverticulitis in the past No fevers or chills No nausea Will do labs CT Will discuss risks of radiation with this patient as well as GI follow up 08/07/17 00:35 Laboratory Tests 08/06/17 08/06/17 08/06/17 22:27 22:27 23:23 WBC 9.5 Hgb 15.7 Hct 46.7 Plt Count 220 Sodium 142 Potassium 4.1 Chloride 106 Carbon Dioxide 30 BUN 13 Creatinine 0.8 Random Glucose 94 D Lipase 104 Urine Blood Negative Urine Nitrite Negative Ur Leukocyte Esterase Negative CT pending Ct demonstrates fatty infiltration No diverticulitis no appendicitis Discharged to home clinical Impression: chronic abdominal pain, initial presentation
[2017-08-06 22:41] LABS: HEMATOCRIT 46.7 % (35.4-49); HEMOGLOBIN 15.7 GM/dL (11.7-16.9); LYMPH % 24.5 % (8-40); MCHC 33.6 g/dl (32.0-35.9); MEAN CELL VOLUME 83.5 fl (80-96); MEAN PLT VOLUME 9.2 fl (7.5-11.1); PLATELET COUNT 220 K/MM3 (134-434); RBC 5.59 M/mm3 (4.00-5.60); RDW 13.5 % (11.9-15.9); WHITE BLOOD COUNT 9.5 K/mm3 (4.0-10.0)
[2017-08-06 22:42] LABS: BASO % 0.6 % (0-2.0); EOS % 1.1 % (0-4.5); MONO % 7.8 % (3.8-10.2)
[2017-08-06 22:59] LABS: ALBUMIN 4.1 g/dl (3.4-5.0); ALK PHOS 88 U/L (45-117); ANION GAP 6 (8-16); BILIRUBIN,TOTAL 0.4 mg/dL (0.2-1.0); BLOOD UREA NITROGEN 13 mg/dL (7-18); CALCIUM 8.9 mg/dL (8.5-10.1); CHLORIDE 106 mmol/L (98-107); CO2 30 mmol/L (21-32); CREATININE 0.8 mg/dL (0.7-1.3); GLUCOSE,RANDOM 94 mg/dL (74-106); LIPASE 104 U/L (73-393); POTASSIUM 4.1 mmol/L (3.5-5.1); SGOT/AST 23 U/L (15-37); SGPT/ALT 74 U/L (12-78); SODIUM 142 mmol/L (136-145); TOT PROT 7.8 g/dl (6.4-8.2)
[2017-08-06 23:35] LABS: URINE APPEARANCE CLEAR; URINE BILIRUBIN NEGATIVE (<2.0 mg/dL); URINE COLOR YELLOW; URINE GLUCOSE (UA) NEGATIVE (NEGATIVE); URINE KETONE NEGATIVE (NEGATIVE); URINE LEUK ESTERASE NEGATIVE (NEGATIVE); URINE NITRITE NEGATIVE (NEGATIVE); URINE PROTEIN NEGATIVE (NEGATIVE)
== END 2017-08-07 02:13 | disposition home or self-care (01) ==
LOC: JER 20:22
PROC: 3E033GC Introduction of Other Therapeutic Substance into Peripheral Vein, Percutaneous Approach (ICD-10-PCS; principal; 2017-08-06)
PROC: 3E033GC Introduction of Other Therapeutic Substance into Peripheral Vein, Percutaneous Approach (ICD-10-PCS; 2017-08-06)
DX: R10.30 Lower abdominal pain, unspecified (principal); Z87.19 Personal history of other diseases of the digestive system
CPT/HCPCS: 36415; 74177-TC; 80053; 81003; 83690; 85025; 96365; 96375; 99282-25; J7030

== ENCOUNTER 2017-11-12 13:02 | Emergency (ER) | payer OTHER ==
[2017-11-12 13:11] VITALS: BP 124/78; PULSE 78; TEMP 98.3; BMI 25.4
--- NOTE | 2017-11-12 13:16 | PDOC ---
History of Present Illness - General Chief Complaint: Chest Pain Stated Complaint: CHEST PAIN Time Seen by Provider: 11/12/17 13:12 History Source: Patient Exam Limitations: No Limitations - History of Present Illness Initial Comments: 11/12/17 13:13 Pt is a 22 y/o M with no PMH who presents to the ED with one week of localized chest pain on the L side. Pt states the pain is worse with movement and worse at night. Denies trauma, falling, lifting heavy objects. Pt works in a bank. Denies fever, chills, SOB, difficulty breathing, wheezing, n/v/d. Past History - Travel Traveled outside of the country in the last 30 days: No Close contact w/someone who was outside of country & ill: No - Past Medical History Allergies/Adverse Reactions: Allergies Allergy/AdvReac Type Severity Reaction Status Date / Time No Known Allergies Allergy Verified 11/12/17 13:06 Home Medications: Ambulatory Orders Ibuprofen [Motrin -] 600 mg PO QID #21 tablet 11/12/17 CVA: No COPD: No DVT: No - Surgical History Abdominal Surgery: Yes (Hernia repair when ) - Suicide/Smoking/Psychosocial Hx Smoking History: Never smoked Have you smoked in the past 12 months: No Information on smoking cessation initiated: No Hx Alcohol Use: No Drug/Substance Use Hx: No Substance Use Type: None Review of Systems - Review of Systems Able to Perform ROS?: Yes Comments:: 11/12/17 13:12 CONSTITUTIONAL: Absent: fever, chills, diaphoresis, generalized weakness, malaise, loss of appetite HEENT: Absent: rhinorrhea, nasal congestion, throat pain, throat swelling, difficulty swallowing, mouth swelling, ear pain, eye pain, visual Changes CARDIOVASCULAR: Present: L sided chest pain Absent: loss of consciousness, palpitations, irregular heart rate, peripheral edema RESPIRATORY: Absent: cough, shortness of breath, dyspnea with exertion, orthopnea, wheezing, stridor, hemoptysis GASTROINTESTINAL: Absent: abdominal pain, abdominal distension, nausea, vomiting, diarrhea, constipation, melena, hematochezia GENITOURINARY: Absent: dysuria, frequency, urgency, hesitancy, hematuria, flank pain, genital pain MUSCULOSKELETAL: Absent: myalgia, arthralgia, joint swelling SKIN: Absent: rash, itching, pallor HEMATOLOGIC/IMMUNOLOGIC: Absent: easy bleeding, easy bruising, lymphadenopathy, frequent infections ENDOCRINE: Absent: unexplained weight gain, unexplained weight loss, heat intolerance, cold intolerance NEUROLOGIC: Absent: headache, focal weakness or paresthesias, dizziness, unsteady gait, seizure, mental status changes, bladder or bowel incontinence PSYCHIATRIC: Absent: anxiety, depression, suicidal or homicidal ideation, hallucinations. Is the patient limited Czech proficient: No *Physical Exam - Vital Signs Last Vital Signs Temp Pulse Resp BP Pulse Ox 98.3 F 78 18 124/78 100 11/12/17 13:09 11/12/17 13:09 11/12/17 13:09 11/12/17 13:09 11/12/17 13:09 - Physical Exam Comments: 11/12/17 13:13 GENERAL: Well developed, well nourished. Awake and alert. No acute distress. HEENT: Normocephalic, atraumatic. PERRLA, EOMI. No conjunctival pallor. Sclera are non- icteric. Moist mucous membranes. Oropharynx is clear. NECK: Supple. Full ROM. No JVD. Carotid pulses 2+ and symmetric, without bruits. No thyromegaly. No lymphadenopathy. CARDIOVASCULAR: Regular rate and rhythm. No murmurs, rubs, or gallops. Distal pulses are 2+ and symmetric. Pain relieved with palpation of upper L chest wall. PULMONARY: No evidence of respiratory distress. Lungs clear to auscultation bilaterally. No wheezing, rales or rhonchi. ABDOMINAL: Soft. Non-tender. Non-distended. No rebound or guarding. No organomegaly. Normoactive bowel sounds. MUSCULOSKELETAL Normal range of motion at all joints. No bony deformities or tenderness. No CVA tenderness. EXTREMITIES: No cyanosis. No clubbing. No edema. No calf tenderness. SKIN: Warm and dry. Normal capillary refill. No rashes. No jaundice. NEUROLOGICAL: Alert, awake, appropriate. Cranial nerves 2-12 intact. No deficits to light touch and temperature in face, upper extremities and lower extremities. No motor deficits in the in face, upper extremities and lower extremities. Normoreflexic in the upper and lower extremities. Normal speech. Toes are down- going bilaterally. Gait is normal without ataxia. PSYCHIATRIC: Cooperative. Good eye contact. Appropriate mood and affect. Heart Score/ECG Review - History History: Slightly suspicious Medical Decision Making - Medical Decision Making 11/12/17 14:00 Pt is a 22 y/o M with no PMH who presents to the ED with one week of localized chest pain on the L side. Pt states the pain is worse with movement and worse at night. -On exam chest pain made better with palpation of chest wall -EKG: Rate 71 BPM, NSR, Normal axis and intervals. No acute ST-T wave changes. Overall normal EKG -CXR: No acute pathology -Pt reports relief of symptoms with Motrin -Will dc home at this time. Most likely a chest wall strain/atypical chest pain. -Pt to f/u with PCP. Return precautions given. Pt understands all dc instructions and all questions were answered. *DC/Admit/Observation/Transfer Diagnosis at time of Disposition: Atypical chest pain - Discharge Dispostion Disposition: HOME Condition at time of disposition: Stable Decision to Admit order: No - Referrals Referrals: Marysol Conley [Primary Care Provider] - - Patient Instructions Printed Discharge Instructions: DI for Atypical Chest Pain Additional Instructions: You were evaluated for chest pain today Your EKG and x-ray were normal You most likely have a muscle strain Take ibuprofen 600mg every 6 hours as need for pain Follow up with your primary care doctor this week Return to the ED if you have any worsening chest pain, difficulty breathing, or if you have any changes in your symptoms. - Post Discharge Activity Forms/Work/School Notes: Back to Work
[2017-11-12] MEDS ORDERED: IBUPROFEN 600 MG TABLET (FP) PO ONE ×2 (13:22→13:30)
--- NOTE | 2017-11-13 16:31 | EKG ---
Test Reason : Blood Pressure : / mmHG Vent. Rate : 071 BPM Atrial Rate : 071 BPM P-R Int : 152 ms QRS Dur : 082 ms QT Int : 376 ms P-R-T Axes : 059 030 035 degrees QTc Int : 408 ms NORMAL SINUS RHYTHM NORMAL ECG WHEN COMPARED WITH ECG OF 24-MAR-2017 19:49, NO SIGNIFICANT CHANGE WAS FOUND Confirmed by Venkata Cordero ([id number]) on 11/13/2017 4:30:31 PM Referred By: DONNA Confirmed By:Venkata Cordero
== END 2017-11-12 13:54 | disposition home or self-care (01) ==
LOC: JERFT 13:02
DX: R07.89 Other chest pain (principal)
CPT/HCPCS: 71046-TC-FY; 93005; 93010; 99281-25

== ENCOUNTER 2018-02-11 17:00 | Emergency (ER) | payer OTHER ==
[2018-02-11 17:29] VITALS: BP 128/71; PULSE 73; TEMP 98.3; BMI 27.1
--- NOTE | 2018-02-11 17:30 | PDOC ---
Rapid Medical Evaluation Chief Complaint: Chest Pain Time Seen by Provider: 02/11/18 17:25 Medical Evaluation: Allergies Allergy/AdvReac Type Severity Reaction Status Date / Time No Known Allergies Allergy Verified 02/11/18 17:26 02/11/18 17:26 I have performed a brief in-person evaluation of this patient. The patient presents with a chief complaint of: chest pain x 1 week , worse with deep breath and worse after meals. No Hx of heart disease . took protonix this am. Pertinent physical exam findings: mild abd tenderness/ diffuse I have ordered the following: nothing The patient will proceed to the ED for further evaluation. 02/11/18 17:27 Discharge Disposition - Diagnosis Gastritis Qualifiers: Gastritis type: unspecified gastritis - Referrals - Patient Instructions - Post Discharge Activity
--- NOTE | 2018-02-11 18:02 | PDOC ---
Attending Attestation - Resident Resident Name: AngeliqueMachelle - ED Attending Attestation I have performed the following: I have examined & evaluated the patient, The case was reviewed & discussed with the resident, I agree w/resident's findings & plan, Exceptions are as noted - HPI HPI: 02/11/18 18:10 22 yo male with history og GERD presents with epigastric pain after eating.He has had EDG and colonoscopy already and his filters assembler is Dr Santos - Physicial Exam PE: 02/11/18 18:19 wnwd 22 male in no acute distress head ncat neck supple lungs cta b/l cvs rrr s1s2 abd no rebound.,no guarding ext no edema,no deformities no cva tenderness skin warm and dry neuro axox3,ambulatory ,no gross focal neuro deficits psych appropriate - Medical Decision Making 02/11/18 19:46 22-year-old female has had epigastric pain when eating. History of taking omeprazole for acid reflux that was recommended to him by his filters assembler. He's had no nausea or vomiting or fever or chills. History of vital signs His benign abdominal exam. He has had both endoscopy and colonoscopy by Dr. Santos He had CAT scan of the abdomen of abdomen and pelvis back in July that did not show any masses or diverticulitis or colitis, appendicitis or small bowel obstruction lymphadenopathy. Patient got better with by mouth meds ER Patient was told to follow-up with Dr. Santos that perhaps he is developing an ulcer. Plan follow-up with Dr. Sidhu
[2018-02-11] MEDS ORDERED: ACETAMINOPHEN 325 MG TABLET (FP) PO ONE (18:04)
[2018-02-11] MEDS ORDERED: LIDOCAINE VISCOUS 2% ORAL/TOP 20 ML UNIT-DOSE CUP MM ONE (18:05)
[2018-02-11] MEDS ORDERED: RANITIDINE HCL 150 MG/10 ML UNIT-DOSE PO ONE (18:05)
[2018-02-11] MEDS ORDERED: DICYCLOMINE HCL 10 MG/5 ML PO ONE (18:05)
[2018-02-11] MEDS ORDERED: MAG HYDROX/AL HYDROX/SIMETH 30 ML UNIT-DOSE CUP PO ONE (18:05)
[2018-02-11] MEDS ORDERED: LIDOCAINE VISCOUS 2% ORAL/TOP 20 ML UNIT-DOSE CUP ONE (18:16)
[2018-02-11] MEDS ORDERED: diphenhydrAMINE HCL 12.5 MG/5 ML BULK BOTTLE ONE (18:16)
[2018-02-11] MEDS ORDERED: ACETAMINOPHEN 325 MG TABLET (FP) ONE (18:16)
[2018-02-11] MEDS ORDERED: MAG HYDROX/AL HYDROX/SIMETH 30 ML UNIT-DOSE CUP ONE (18:17)
--- NOTE | 2018-02-11 18:32 | PDOC ---
History of Present Illness - General Chief Complaint: Pain Stated Complaint: CHEST PAIN Time Seen by Provider: 02/11/18 17:25 - History of Present Illness Initial Comments: Fady Jose is a 22yo man with a PMH of GERD diagnosed on EGD (August 2017) who presents with worsening LUQ and mid-sternal chest pain for the past week. Mr Jose reports that his LUQ discomfort is present at a low level throughout the day, but he starts to have severe, sharp, pinching pain that occurs after eating large meals. He has been avoiding large meals over the past few days because the pain after eating a lot of food is much more severe. He also reports mid-sternal discomfort, and this pain is worst at night and is preventing him from sleeping. He additionally endorses frequent burping over the same time period. Mr Jose states that he was previously seen by Dr Santos and has been taking his daily 40mg pantoprazole as prescribed, but he is afraid that his symptoms are now worse. Over the past 2-3 days, he has also noticed reproducible soreness along the left lower ribs and mid-sternum that he does not remember having previously. He denies any fevers, chills, vomiting, change in bowel habits, other abdominal pain, frequent alcohol use, recent travel, significant change in diet, or sick contacts. Past History - Past Medical History Allergies/Adverse Reactions: Allergies Allergy/AdvReac Type Severity Reaction Status Date / Time No Known Allergies Allergy Verified 02/11/18 17:26 Home Medications: Ambulatory Orders Pantoprazole Sodium [Protonix] 40 mg PO DAILY 02/11/18 CVA: No COPD: No DVT: No GI Disorders: Yes (reflux) - Surgical History Abdominal Surgery: Yes (Hernia repair when ) - Suicide/Smoking/Psychosocial Hx Smoking History: Never smoked Have you smoked in the past 12 months: No Hx Alcohol Use: No Drug/Substance Use Hx: No Substance Use Type: None Review of Systems - Review of Systems Comments:: General: No fevers, no chills, no weight or appetite change, no malaise HEENT: No changes in vision, no changes in hearing, no congestion, no sore throat CV: No chest pain, no palpitations, no LE edema Pulm: No SOB, no cough, no wheezing GI: No nausea or vomiting, no change in bowel habits, no melena. See HPI : No frequency, no urgency, no dysuria Musc: No back pain, no joint swelling, no recent injury Skin: No rash, no lesions, no erythema Endo: No excessive thirst, no heat/cold intolerance Heme: No unusual bruising or bleeding, no swollen glands Neuro: No syncope, no numbness/tingling, no focal weakness Vasc: No claudication Psych: No recent change in mood, no SI or HI *Physical Exam - Vital Signs Last Vital Signs Temp Pulse Resp BP Pulse Ox 98.3 F 73 16 128/71 99 02/11/18 17:27 18 17:27 02/11/18 17:27 02/11/18 17:27 02/11/18 17:27 - Physical Exam Comments: General: Comfortable, no acute distress HEENT: PERRL, EOMI, MMM, voice normal, normal neck ROM, no LAD Cards: RRR, no murmur appreciated. Reproducible pain over lowest 2 left ribs and mid-sternum. Pulm: Comfortable on room air, clear to auscultation bilaterally Abd: Soft, nontender, nondistended. Mild LUQ pain under ribs : No CVA tenderness Ext: Atraumatic. No LE edema. ROM intact. Strength 5/5 and equal bilaterally Vasc: Extremities WWP. Skin: Normal color, no rashes or lesions Neuro: A&Ox3, CN grossly intact, normal speech, motor/sensory grossly intact and symmetric Psych: Anxious Moderate Sedation - Procedure Monitoring Vital Signs: Procedure Monitoring Vital Signs Temperature 98.3 F 02/11/18 17:27 Pulse Rate 73 02/11/18 17:27 Respiratory Rate 16 02/11/18 17:27 Blood Pressure 128/71 02/11/18 17:27 O2 Sat by Pulse Oximetry (%) 99 02/11/18 17:27 Medical Decision Making - Medical Decision Making 02/11/18 18:42 Fady Jose is a 22yo man with a PMH of GERD who presents with pinching LUQ pain after meals, mid-sternal pain overnight, and increased burping for one week. - Symptoms are consistent with known GERD. Timing of pain immediately after large meals suggests possible gastric ulcer. GI cocktail given for symptoms. - Reproducible mid-sternal and low rib pain in an otherwise healthy 22yo man with normal vitals is unlikely to be cardiac in nature. EKG to r/o abnormalities or arrhythmia. PO acetaminophen for pain. - Patient has a benign abdominal exam, lowers suspicion for acute abdomen He was also previously seen with similar symptoms in July 2017, at which time a CT abd/pelvis did not demonstrate abdominal pathology - If EKG is not concerning and symptoms improve with medications, will most likely d/c home to follow up with Dr Santos. 02/11/18 19:25 - Mr Jose reports that his LUQ, left rib, and sternal pain are now gone - He feels comfortable going home with GI follow-up. Discussed home care, medications, follow up, and return precautions at length. - Discharge home Discussed with Dr Navarro. Machelle Merino PGY1 *DC/Admit/Observation/Transfer Diagnosis at time of Disposition: Gastritis Qualifiers: Gastritis type: unspecified gastritis - Discharge Dispostion Disposition: HOME Condition at time of disposition: Stable Decision to Admit order: No - Referrals Referrals: Roshan Santos MD [Staff Physician] - - Patient Instructions Printed Discharge Instructions: DI for Gastritis Additional Instructions: Discharge Instructions: You were seen in the emergency department with left upper abdominal pain, sternal pain, and burping. Your symptoms are consistent with your known GERD ( acid reflux disease) and most likely are worse due to an episode of gastritis, or stomach inflammation. It is possible that you have a stomach ulcer, and you should probably be seen by GI for follow up. The pain you have noticed with arm and torso movement is likely due to muscle or soft tissue irritation. Home Care: - Continue to take your pantoprazole as prescribed - Eat small, frequent meals to help prevent symptoms. Avoid spicy foods, caffeine, alcohol and anything that you have noticed upsets your stomach. - If you have pain after eating, you may consider using over the counter medications such as Maalox or Mylanta. These are thick liquid antacids that help coat the stomach and relieve pain. These are safe to take with your pantoprazole. - Until your symptoms resolve, sleep with your head elevated slightly. Use a few extra pillows or sleep in a recliner for a few days. - You may take acetaminophen 1000mg every 6-8 hours for musculoskeletal pain ( such as in your ribs). Hot or ice packs may also help. - If you have questions about what medications are safe to take together, you may ask your doctor or pharmacist Follow Up: - Make an appointment to see Dr Santos in GI within the next week. You may need another EGD or medication adjustment. - Seek immediate medical care if you have severe vomiting and cannot eat or drink, vomit blood, have bloody or tar-like stool, or if you have chest pain with exercise, especially if you also have sweating, lightheadedness, and vomiting. - Post Discharge Activity
[2018-02-11] MEDS ORDERED: diphenhydrAMINE HCL 12.5 MG/5 ML UNIT-DOSE CUPS PO PRN (18:55)
== END 2018-02-11 19:53 | disposition home or self-care (01) ==
LOC: JER 17:00
DX: K29.70 Gastritis, unspecified, without bleeding (principal)
CPT/HCPCS: 99282-25

== ENCOUNTER 2018-04-15 19:35 | Emergency (ER) | payer OTHER | END 2018-04-15 21:19 | disposition left against medical advice (07) | LOC: JER 19:35 ==

== ENCOUNTER 2018-04-21 17:55 | Emergency (ER) | payer OTHER ==
[2018-04-21 18:09] VITALS: BP 122/69; PULSE 89; TEMP 98; BMI 25.4
[2018-04-21] MEDS ORDERED: SODIUM CHLORIDE 1,000 ML IV STA (20:08)
[2018-04-21] MEDS ORDERED: morphine CARPU-JECT 4 MG/1 ML DISP.SYRIN IVPUSH ONE (20:08)
--- NOTE | 2018-04-21 20:13 | PDOC ---
History of Present Illness - General Chief Complaint: Pain, Acute Stated Complaint: ABDOMINAL PAIN Time Seen by Provider: 04/21/18 19:20 History Source: Patient Exam Limitations: No Limitations - History of Present Illness Travel History: No Initial Comments: 04/21/18 20:11 HISTORY OF PRESENT ILLNESS: 23-year-old male with past medical history of diverticulitis who presents emergency department for evaluation of lower abdominal and perirectal pain for 4 days. Patient reports the pain in his lower abdomen is consistent with his usual diverticulitis pain. Patient denies any diarrhea or constipation reports having normal bowel movements. Patient had a normal bowel movement today but had increased perirectal pain after moving his bowels. Patient reports he been having unprotected sex with one male partner over the past week and the partner is taking PrEP. Patient denies any discharge from his penis or rectum. No testicular pain. No recent travel or sick contacts. PAST MEDICAL HISTORY: Denies past medical history SURGICAL HISTORY: Denies ALLERGIES: No known drug allergies REVIEW OF SYSTEMS General/Constitutional: Denies fever. (+)chills. Denies weakness, weight change. HEENT: Denies change in vision. Denies ear pain or discharge. Denies sore throat. Cardiovascular: Denies chest pain or shortness of breath. Respiratory: Denies cough, wheezing, or hemoptysis. Gastrointestinal: see HPI Genitourinary: Denies dysuria, frequency, or change in urination. Musculoskeletal: Denies joint or muscle swelling or pain. Denies neck or back pain. Skin and breasts: Denies rash or easy bruising. Neurologic: Denies headache, vertigo, loss of consciousness, or loss of sensation. Psychiatric: Denies depression or anxiety. Endocrine: Denies increased thirst. Denies abnormal weight change. Hematologic/Lymphatic: Denies anemia, easy bleeding, or history of blood clots. Allergic/Immunologic: Denies hives or skin allergy. Denies latex allergy. PHYSICAL EXAM General Appearance: Well-appearing, appropriately dressed. No apparent distress , no intoxication. HEENT: EOMI, PERRLA, normal ENT inspection, normal voice, TMs normal, pharynx normal. No conjunctival pallor. No photophobia, scleral icterus. Neck: Supple. Trachea midline. No tenderness, rigidity, carotid bruit, stridor , lymphadenopathy, or thyromegaly. Respiratory/Chest: Lungs CTAB. No shortness of breath, chest tenderness, respiratory distress, accessory muscle use. No crackles, rales, rhonchi, stridor , wheezing, dullness Cardiovascular: RRR. S1, S2. No JVD, murmur, bradycardia, tachycardia. Vascular Pulses: Dorsalis-Pedis (R): 2+, Dorsalis-Pedis (L): 2+ Gastrointestinal/Abdominal: Normal bowel sounds. Abdomen soft, non-distended. RLQ tenderness with guarding. (-)psoas/obturator signs. No rebound tenderness. No organomegaly, pulsatile mass, hernia, hepatomegaly, splenomegaly. Rectal: Prostate WNL. No internal or external hemorrhoids noted. Rectal tone normal. Lymphatic: No adenopathy, tenderness. Musculoskeletal/Extremities: Normal inspection. FROM of all extremities, normal capillary refill. Pelvis Stable. No CVA tenderness. No tenderness to extremities, pedal edema, swelling, erythema or deformity. Integumentary: Appropriate color, dry, warm. No cyanosis, erythema, jaundice or rash Neurologic: aquatic director II-XII intact. Fully oriented, alert. Appropriate mood/affect. Motor strength 5/5. No appreciable EOM palsy, facial droop or sensory deficit. Past History - Past Medical History Allergies/Adverse Reactions: Allergies Allergy/AdvReac Type Severity Reaction Status Date / Time No Known Allergies Allergy Verified 04/21/18 18:07 Home Medications: Ambulatory Orders NK [No Known Home Medication] 04/21/18 CVA: No COPD: No DVT: No GI Disorders: Yes (reflux, diverticulosis) - Surgical History Abdominal Surgery: Yes (Hernia repair when infant) - Suicide/Smoking/Psychosocial Hx Smoking History: Never smoked Have you smoked in the past 12 months: No Hx Alcohol Use: No Drug/Substance Use Hx: No Substance Use Type: None *Physical Exam - Vital Signs Last Vital Signs Temp Pulse Resp BP Pulse Ox 98 F 89 18 122/69 99 04/21/18 18:08 04/21/18 18:08 04/21/18 18:08 04/21/18 18:08 04/21/18 18:08 Moderate Sedation - Procedure Monitoring Vital Signs: Procedure Monitoring Vital Signs Temperature 98 F 04/21/18 18:08 Pulse Rate 89 04/21/18 18:08 Respiratory Rate 18 04/21/18 18:08 Blood Pressure 122/69 04/21/18 18:08 O2 Sat by Pulse Oximetry (%) 99 04/21/18 18:08 ED Treatment Course - LABORATORY CBC & Chemistry Diagram: 04/21/18 20:25 04/21/18 20:25 - RADIOLOGY Radiology Studies Ordered: Category Date Time Status ABDOMEN & PELVIS CT WITH CONTR [CT] Stat CT Scan 04/21/18 20:09 Ordered Medical Decision Making - Medical Decision Making 04/21/18 20:11 A/P: 23-year-old male with lower abdominal pain worsened over 4 days CBC, CMP, lipase, type and screen, UA, urine culture, HIV testing, GC rectal and urine CTAP with IV contrast Normal saline 1 L bolus Morphine 4 mg IV 04/22/18 00:28 EKG is reviewed by me and interpreted by Dr. Paige: Sinus rhythm with rate of 82. Normal intervals noted. No ischemic changes present. CT of the abdomen and pelvis as read by imaging early childhood education coordinator: No diverticulosis or acute diverticulitis. No bowel obstruction, colitis, free fluid or free air. Normal appendix. Unremarkable pancreas and gallbladder. Subcentimeter cortical hypodensity lower pole left kidney, too small to characterize. Steatosis liver. Azithromycin 1g PO now Ceftriaxone 250mg IM now I discussed the physical exam findings, ancillary test results and final diagnoses with the patient. I answered all of the patient's questions. The patient was satisfied with the care received and felt comfortable with the discharge plan and treatment plan. The patient will call their primary care physician within 24 hours to arrange follow-up and will return to the Emergency Department with any new, persistent or worsening symptoms. *DC/Admit/Observation/Transfer Diagnosis at time of Disposition: Rectal pain Abdominal pain Qualifiers: Abdominal location: lower abdomen, unspecified Qualified Code(s): R10.30 - Lower abdominal pain, unspecified - Discharge Dispostion Disposition: HOME Condition at time of disposition: Stable Decision to Admit order: No - Referrals - Patient Instructions Additional Instructions: You been treated today with azithromycin 1 g by mouth for treatment of presumed chlamydia You have been treated with Rocephin 250 mg injection for treatment of presumned gonorrhea The herpes test, gonorrhea and chlamydia testing will not be completed for the next few days. You may call [phone] and leave message for return phone call with lab results. Be sure to be clear with your name, birthdate, and phone number Always use condoms with the partners Followup with PMD in one week for reevaluation and retesting. - Post Discharge Activity
[2018-04-21 20:39] LABS: BASO % 0.6 % (0-2.0); EOS % 1.1 % (0-4.5); HEMATOCRIT 47.7 % (35.4-49); HEMOGLOBIN 16.6 GM/dL (11.7-16.9); LYMPH % 27.5 % (8-40); MCH 29.2 pg (25.7-33.7); MCHC 34.8 g/dl (32.0-35.9); MEAN CELL VOLUME 84.1 fl (80-96); MEAN PLT VOLUME 9.2 fl (7.5-11.1); MONO % 10.1 % (3.8-10.2); NEUT % 60.7 % (42.8-82.8); PLATELET COUNT 212 K/MM3 (134-434); RBC 5.68 M/mm3 (4.00-5.60); RDW 13.9 % (11.9-15.9); WHITE BLOOD COUNT 8.6 K/mm3 (4.0-10.0)
[2018-04-21 20:41] LABS: URINE APPEARANCE CLEAR; URINE BILIRUBIN NEGATIVE (<2.0 mg/dL); URINE COLOR YELLOW; URINE GLUCOSE (UA) NEGATIVE (NEGATIVE); URINE KETONE NEGATIVE (NEGATIVE); URINE LEUK ESTERASE NEGATIVE (NEGATIVE); URINE NITRITE NEGATIVE (NEGATIVE); URINE PROTEIN NEGATIVE (NEGATIVE)
[2018-04-21] MEDS ORDERED: morphine SULFATE 4 MG/ML VIAL ONE (20:44)
[2018-04-21 21:04] LABS: ALBUMIN 4.4 g/dl (3.4-5.0); ALK PHOS 91 U/L (45-117); ANION GAP 7 MMOL/L (8-16); BILIRUBIN,TOTAL 0.5 mg/dL (0.2-1); BLOOD UREA NITROGEN 15 mg/dL (7-18); CALCIUM 9.2 mg/dL (8.5-10.1); CHLORIDE 104 mmol/L (98-107); CO2 27 mmol/L (21-32); CREATININE 0.7 mg/dL (0.55-1.3); GLUCOSE,RANDOM 87 mg/dL (74-106); LIPASE 118 U/L (73-393); POTASSIUM 4.2 mmol/L (3.5-5.1); SGOT/AST 35 U/L (15-37); SGPT/ALT 79 U/L (13-61); SODIUM 138 mmol/L (136-145)
[2018-04-22] MEDS ORDERED: AZITHROMYCIN 500 MG TABLET PO ONE (00:27)
[2018-04-22] MEDS ORDERED: AZITHROMYCIN 250 MG TABLET ONE ×2 (00:35→00:47)
[2018-04-22] MEDS ORDERED: cefTRIAXone SODIUM 1 GM VIAL ONE (00:35)
[2018-04-22] MEDS ORDERED: LIDOCAINE HCL 1%, 10 MG/ML (20ML VIAL) ONE (00:38)
--- NOTE | 2018-04-22 09:55 | EKG ---
Test Reason : Blood Pressure : / mmHG Vent. Rate : 082 BPM Atrial Rate : 082 BPM P-R Int : 138 ms QRS Dur : 080 ms QT Int : 342 ms P-R-T Axes : 000 -08 -15 degrees QTc Int : 399 ms NORMAL SINUS RHYTHM LOW VOLTAGE QRS BORDERLINE ECG WHEN COMPARED WITH ECG OF 15-APR-2018 19:50, T WAVE VARIATION Confirmed by DARCY STARKS MD ([id number]) on 04/22/2018 9:55:22 AM Referred By: Confirmed By:DARCY STARKS MD
== END 2018-04-22 00:55 | disposition home or self-care (01) ==
LOC: JER 17:55
PROC: 3E0337Z Introduction of Electrolytic and Water Balance Substance into Peripheral Vein, Percutaneous Approach (ICD-10-PCS; principal; 2018-04-21)
PROC: 3E033NZ Introduction of Analgesics, Hypnotics, Sedatives into Peripheral Vein, Percutaneous Approach (ICD-10-PCS; 2018-04-21)
PROC: 3E02329 Introduction of Other Anti-infective into Muscle, Percutaneous Approach (ICD-10-PCS; 2018-04-21)
DX: K62.89 Other specified diseases of anus and rectum (principal); Z77.21 Contact with and (suspected) exposure to potentially hazardous body fluids; Z11.3 Encounter for screening for infections with a predominantly sexual mode of transmission; Z87.19 Personal history of other diseases of the digestive system
CPT/HCPCS: 36415; 74177-TC; 80053; 81003; 83690; 85025; 87086; 87255; 87389; 87491; 87529; 87591; 93005; 93010; 96361; 96372; 96374; 99284-25; J7030

== ENCOUNTER 2018-08-24 10:55 | Emergency (ER) | payer OTHER | END 2018-08-24 19:25 | disposition home or self-care (01) | LOC: JER 10:55 ==

== ENCOUNTER 2020-08-21 16:09 | Emergency (ER) | payer OTHER ==
[2020-08-21 16:14] VITALS: BP 130/77; PULSE 91; TEMP 99.7; BMI 25.8
[2020-08-21] MEDS ORDERED: guaiFENesin/CODEINE 10 ML UNIT-DOSE CUPS PO ONE (16:40)
[2020-08-21] MEDS ORDERED: guaiFENesin/CODEINE 5 ML UNIT-DOSE CUPS PO ONE (16:57)
== END 2020-08-21 17:45 | disposition home or self-care (01) ==
LOC: JERFT 16:09
DX: R05 Cough (principal); J02.9 Acute pharyngitis, unspecified; R09.81 Nasal congestion
CPT/HCPCS: 36415; 71046-TC-FY; 87491; 87591; 87880; 99284-25; C9803; U0003; U0005

== ENCOUNTER 2020-11-10 14:19 | Emergency (ER) | payer OTHER ==
[2020-11-10 14:56] VITALS: BP 121/75; PULSE 63; TEMP 98.1; BMI 27.1
[2020-11-10] MEDS ORDERED: ACETAMINOPHEN 325 MG TABLET (FP) PO ONE (15:49)
[2020-11-10] MEDS ORDERED: ACETAMINOPHEN 500 MG TABLET (FP) ONE (15:51)
[2020-11-10 16:55] LABS: URINE APPEARANCE CLEAR; URINE BILIRUBIN NEGATIVE (NEGATIVE); URINE COLOR YELLOW; URINE GLUCOSE (UA) NEGATIVE (NEGATIVE); URINE KETONE TRACE (NEGATIVE); URINE LEUK ESTERASE NEGATIVE (NEGATIVE); URINE NITRITE NEGATIVE (NEGATIVE); URINE PROTEIN NEGATIVE (NEGATIVE)
== END 2020-11-10 18:02 | disposition home or self-care (01) ==
LOC: JERFT 14:19
DX: R30.0 Dysuria (principal)
CPT/HCPCS: 36415; 81003; 87086; 87491; 87591; 99283-25

== ENCOUNTER 2021-03-09 18:04 | Emergency (ER) | payer OTHER ==
[2021-03-09 18:27] VITALS: BP 123/78; PULSE 83; TEMP 98.5; BMI 27.4
== END 2021-03-09 20:05 | disposition home or self-care (01) ==
LOC: JER 18:04
DX: R05.1 Acute cough (principal); J02.9 Acute pharyngitis, unspecified; R07.9 Chest pain, unspecified
CPT/HCPCS: 71046-TC-FY; 87804; 87807; 93005; 93010; 99283-25; C9803-CS; U0003; U0005

== ENCOUNTER 2021-08-28 10:19 | Emergency (ER) | payer OTHER ==
[2021-08-28 10:24] VITALS: BP 123/78; PULSE 84; TEMP 98.1; BMI 27.1
[2021-08-28 12:30] LABS: PH,URINE 6.5 (5.0-8.0); URINE APPEARANCE CLEAR; URINE BILIRUBIN NEGATIVE (NEGATIVE); URINE COLOR YELLOW; URINE GLUCOSE (UA) NEGATIVE (NEGATIVE); URINE KETONE NEGATIVE (NEGATIVE); URINE LEUK ESTERASE NEGATIVE (NEGATIVE); URINE NITRITE NEGATIVE (NEGATIVE); URINE PROTEIN NEGATIVE (NEGATIVE); URINE UROBILINOGEN 0.2 mg/dL (0.2-1.0)
[2021-08-28 13:18] LABS: SYPHILIS W/ RPR CONF NON-REACTIVE (NONREACTIVE)
== END 2021-08-28 13:24 | disposition home or self-care (01) ==
LOC: JERFT 10:19 → JER 10:19 → JERFT 13:24
DX: R30.0 Dysuria (principal)
CPT/HCPCS: 36415; 81003; 86695; 86696; 86780; 87086; 87340; 87491; 87591; 99283-25

== ENCOUNTER 2021-11-09 04:07 | Day surgery (SDC) | payer OTHER ==
[2021-11-09] MEDS ORDERED: FAMOTIDINE 10 MG TABLET PO ONE (04:39)
[2021-11-09] MEDS ORDERED: ACETAMINOPHEN 325 MG TABLET (FP) PO ONE (04:39)
[2021-11-09] MEDS ORDERED: FAMOTIDINE 20 MG TABLET ONE (04:53)
[2021-11-09] MEDS ORDERED: ACETAMINOPHEN 325 MG TABLET (FP) ONE (04:53)
[2021-11-09 05:08] LABS: URINE APPEARANCE CLEAR; URINE BILIRUBIN NEGATIVE (NEGATIVE); URINE COLOR YELLOW; URINE GLUCOSE (UA) NEGATIVE (NEGATIVE); URINE KETONE NEGATIVE (NEGATIVE); URINE LEUK ESTERASE NEGATIVE (NEGATIVE); URINE NITRITE NEGATIVE (NEGATIVE); URINE PROTEIN NEGATIVE (NEGATIVE); URINE UROBILINOGEN 0.2 mg/dL (0.2-1.0)
[2021-11-09 05:39] LABS: BASO % 0.4 % (0-2.0); EOS % 0.5 % (0-4.5); HEMATOCRIT 45.3 % (35.4-49); HEMOGLOBIN 15.2 GM/dL (11.7-16.9); LYMPH % 10.1 % (8-40); MCH 27.6 pg (25.7-33.7); MCHC 33.5 g/dl (32.0-35.9); MEAN CELL VOLUME 82.5 fl (80-96); PLATELET COUNT 185 10^3/uL (134-434); RBC 5.49 M/mm3 (4.00-5.60); RDW 13.6 % (11.9-15.9); WHITE BLOOD COUNT 13.5 K/mm3 (4.0-10.0)
[2021-11-09 05:57] LABS: ALBUMIN 3.8 g/dl (3.4-5.0); BLOOD UREA NITROGEN 11.5 mg/dL (7-18); CALCIUM 8.7 mg/dL (8.5-10.1)
[2021-11-09 06:00] LABS: CREATININE 0.8 mg/dL (0.55-1.3)
[2021-11-09 06:02] LABS: BILIRUBIN,TOTAL 0.5 mg/dL (0.2-1)
[2021-11-09] MEDS ORDERED: PIPERACILLIN/TAZOB 3.375 GM 3.375 GM in DEXTROSE 5%-WATER - 50 ML IVPB ONE (08:50)
[2021-11-09] MEDS ORDERED: LACTATED RINGERS SOLUTION 1,000 ML/1,000 ML INFUS.BAG IV SCH (09:00)
[2021-11-09] MEDS ORDERED: PIPERACILLIN/TAZOB 3.375 GM 3.375 GM/50 ML BAG IVPB ONE (09:21)
[2021-11-09] MEDS ORDERED: SODIUM CHLORIDE 1,000 ML IV SCH ×2 (09:30→13:12)
[2021-11-09] MEDS ORDERED: morphine SULFATE 4 MG/ML VIAL IVPUSH ONE (09:30)
[2021-11-09] MEDS ORDERED: ACETAMINOPHEN 1000 MG/100 ML BAG IVPB PRN ×2 (09:32→13:12)
[2021-11-09] MEDS ORDERED: morphine SULFATE 4 MG/ML VIAL IVPUSH PRN ×2 (09:32→13:12)
[2021-11-09] MEDS ORDERED: PROPOFOL 20 ML ONE (09:52)
[2021-11-09] MEDS ORDERED: ONDANSETRON 4 MG/2 ML VIAL ONE (09:52)
[2021-11-09] MEDS ORDERED: MIDAZOLAM HCL 2 MG/2 ML SINGLE DOSE VIAL ONE (09:52)
[2021-11-09] MEDS ORDERED: DEXAMETHASONE SOD PHOSPHATE 4 MG/1 ML VIAL ONE (09:52)
[2021-11-09] MEDS ORDERED: LIDOCAINE HCL/PF 2% SDV 5ML VIAL ONE (09:52)
[2021-11-09] MEDS ORDERED: ROCURONIUM BROMIDE 50 MG/5 ML SYRINGE ONE (09:52)
[2021-11-09] MEDS ORDERED: PIPERACILLIN/TAZOB 3.375 GM 3.375 GM in DEXTROSE 5%-WATER - 50 ML IVPB SCH ×2 (10:00→18:00)
[2021-11-09] MEDS ORDERED: BUPIVACAINE HCL/PF 0.5% (5MG/ML) 10 ML VIAL ONE (10:01)
[2021-11-09] MEDS ORDERED: BUPIVACAINE HCL/PF 0.5% (5 MG/ML) 30 ML VIAL IJ ONE ×3 (10:03)
[2021-11-09 10:16] LABS: INR 1.03 (0.83-1.09); PROTHROMBIN TIME (PATIENT) 11.8 SEC (9.7-13.0)
[2021-11-09 10:18] LABS: ACTIVATED PTT 32.4 SECONDS (25.2-36.5)
[2021-11-09] MEDS ORDERED: ONDANSETRON 4 MG/2 ML VIAL IVPUSH PRN ×2 (10:48→13:12)
[2021-11-09] MEDS ORDERED: oxyCODONE HCL 5 MG TABLET PO PRN (10:48)
[2021-11-09] MEDS ORDERED: KETOROLAC TROMETHAMINE 30 MG/1 ML VIAL ONE (11:06)
[2021-11-09] MEDS ORDERED: GLYCOPYRROLATE 0.2 MG/1 ML VIAL ONE (11:06)
[2021-11-09] MEDS ORDERED: NEOSTIGMINE METHYLSULFATE 0.5 MG/1 ML - 10 ML MDV ONE (11:06)
[2021-11-09 14:33] VITALS: BMI 27.7
[2021-11-09] MEDS: LACTATED RINGERS SOLUTION 1,000 ML/1,000 ML INFUS.BAG IV SCH ×2 (14:50→22:08)
[2021-11-10] MEDS ORDERED: PHENAZOPYRIDINE HCL 100 MG TABLET (FP) PO ONE ×2 (09:24→10:27)
[2021-11-10 10:20] LABS: BASO % 0.4 % (0-2.0); EOS % 0.1 % (0-4.5); HEMATOCRIT 43.4 % (35.4-49); LYMPH % 16.2 % (8-40); MCH 28.9 pg (25.7-33.7); MCHC 34.6 g/dl (32.0-35.9); MEAN CELL VOLUME 83.6 fl (80-96); MEAN PLT VOLUME 9.9 fl (7.5-11.1); MONO % 3.2 % (3.8-10.2); NEUT % 80.1 % (42.8-82.8); PLATELET COUNT 183 10^3/uL (134-434); RBC 5.19 M/mm3 (4.00-5.60); RDW 13.9 % (11.9-15.9); WHITE BLOOD COUNT 10.9 K/mm3 (4.0-10.0)
[2021-11-10 10:26] LABS: INR 1.08 (0.83-1.09); PROTHROMBIN TIME (PATIENT) 12.4 SEC (9.7-13.0)
[2021-11-10 10:29] LABS: ACTIVATED PTT 29.4 SECONDS (25.2-36.5)
[2021-11-10] MEDS: oxyCODONE HCL 5 MG TABLET PO PRN ×2 (10:32→15:16)
[2021-11-10] MEDS ORDERED: KETOROLAC TROMETHAMINE 30 MG/1 ML VIAL IVPUSH ONE (10:33)
[2021-11-10 10:59] LABS: ALBUMIN 3.6 g/dl (3.4-5.0); BLOOD UREA NITROGEN 7.3 mg/dL (7-18); MAGNESIUM 2.2 mg/dL (1.8-2.4)
[2021-11-10 11:04] LABS: CREATININE 0.7 mg/dL (0.55-1.3); PHOSPHOROUS 2.3 mg/dL (2.5-4.9)
[2021-11-10 11:06] LABS: BILIRUBIN,TOTAL 0.8 mg/dL (0.2-1)
[2021-11-10] MEDS ORDERED: ACETAMINOPHEN 500 MG TABLET (FP) PO PRN (12:00)
[2021-11-10] MEDS ORDERED: ACETAMINOPHEN 500 MG TABLET (FP) PO ONE (13:00)
[2021-11-10 15:08] VITALS: BP 112/73; PULSE 89; RESP 18; TEMP 98.4
[2021-11-11 11:31] LABS: URINE APPEARANCE CLEAR; URINE BILIRUBIN NEGATIVE (NEGATIVE); URINE COLOR YELLOW; URINE GLUCOSE (UA) NEGATIVE (NEGATIVE); URINE KETONE TRACE (NEGATIVE); URINE LEUK ESTERASE NEGATIVE (NEGATIVE); URINE NITRITE NEGATIVE (NEGATIVE); URINE PROTEIN NEGATIVE (NEGATIVE); URINE UROBILINOGEN 0.2 mg/dL (0.2-1.0)
== END 2021-11-10 19:28 | disposition home or self-care (01) ==
LOC: JER 04:07 → JERBED 10:02 → JASUSAT 10:02 → UNDOADMIN 10:02 → SUATTDRO 10:02 → JERBED 14:07 → J8W 14:07 → JASUSAT 11-10 19:28
PROVIDERS: ATTEND Internal Medicine
PROC: 0DTJ4ZZ Resection of Appendix, Percutaneous Endoscopic Approach (ICD-10-PCS; principal; 2021-11-09 12:15)
DX: K35.80 Unspecified acute appendicitis (principal)
CPT/HCPCS: 36415; 74177-TC; 80053; 81003; 83735; 84100; 84484; 85025; 85610; 85730; 86850; 86900; 86901; 87086; 88304-TC; 93005; 93010; 94760; 99285-25; C9803-CS; U0003; U0005

== ENCOUNTER 2022-02-06 04:46 | Emergency (ER) | payer OTHER ==
[2022-02-06] MEDS ORDERED: LIDOCAINE 5% TOPICAL PATCH TP ONE (05:08)
[2022-02-06 05:10] VITALS: BP 120/77; PULSE 82; RESP 18; TEMP 98.1; BMI 27.4
[2022-02-06] MEDS ORDERED: LIDOCAINE 5% TOPICAL PATCH ONE (05:11)
[2022-02-06] MEDS ORDERED: KETOROLAC TROMETHAMINE 15 MG/ML VIAL IVPUSH ONE (05:24)
[2022-02-06] MEDS ORDERED: KETOROLAC TROMETHAMINE 15 MG/ML VIAL ONE (05:30)
[2022-02-06] MEDS ORDERED: LIDOCAINE PATCH REMOVAL MC SCH (22:00)
== END 2022-02-06 05:59 | disposition home or self-care (01) ==
LOC: JER 04:46
PROC: 3E0333Z Introduction of Anti-inflammatory into Peripheral Vein, Percutaneous Approach (ICD-10-PCS; principal; 2022-02-06)
DX: M54.6 Pain in thoracic spine (principal); W01.0XXA Fall on same level from slipping, tripping and stumbling without subsequent striking against object, initial encounter
CPT/HCPCS: 71046-TC-FY; 99284-25